=== PATIENT | female | born 2000 | race African-American/Black ===

== ENCOUNTER 2022-07-15 16:13 | Emergency (ER) | payer MEDICAID ==
[~2022-07-15] VITALS: Ht 160 cm; Wt 68.0 kg
[2022-07-15 16:57] LABS: *URINE HCG, QUAL NEG (NEGATIVE)
[2022-07-15] MEDS ORDERED: IBUPROFEN 400 MG TABLET PO ONE (17:00)
[2022-07-15] MEDS ORDERED: ACETAMINOPHEN 325 MG TABLET PO ONE (17:00)
[2022-07-15] MEDS ORDERED: ACETAMINOPHEN 325 MG TABLET ONE ×2 (17:08→17:12)
[2022-07-15] MEDS ORDERED: IBUPROFEN 400 MG TABLET ONE (17:08)
[2022-07-15] MEDS ORDERED: IBUP-1955 PO (17:36)
[2022-07-15 17:44] VITALS: BP 138/70
--- NOTE | 2022-07-15 17:44 | NUR ---
Patient discharged to home in stable condition. Written and verbal after care instructions given. Patient verbalizes understanding of instructions. Stressed follow up or return to ER for worsening s/s.
== END 2022-07-15 17:45 | disposition home or self-care (01) ==
LOC: ER 16:13
DX: M92.521 Juvenile osteochondrosis of tibia tubercle, right leg (principal); M25.561 Pain in right knee; M25.461 Effusion, right knee; Z91.018 Allergy to other foods; Z88.0 Allergy status to penicillin; Z88.8 Allergy status to other drugs, medicaments and biological substances
CPT/HCPCS: 73590; 84703; A4663